=== PATIENT | female | born 1970 | race African-American/Black ===

== ENCOUNTER 2018-07-20 17:09 | Inpatient (IN) | payer BC, OTHER ==
[~2018-07-20] VITALS: Ht 182.9 cm; Wt 121.6 kg
[2018-07-20 17:16] VITALS: BP 159/101
[2018-07-20 19:50] LABS: HEMATOCRIT 34.9 % (37.0-47.0); HEMOGLOBIN 11.3 gm/dL (12.0-15.0); MCH 26.3 pg (26.0-34.0); MCHC 32.4 g/dL (28.0-37.0); MCV 81.4 fL (80.0-100.0); RBC 4.29 mil/uL (4.20-5.00); WBC 6.9 thou/uL (4.0-11.0)
[2018-07-20 19:59] LABS: ANION GAP 13 mmol/L (7-16); BUN 18 mg/dL (7-18); CALCIUM 10.6 mg/dL (8.5-10.1); CHLORIDE 99 mmol/L (98-107); CO2 24 mmol/L (21-32); CREATININE 1.2 mg/dL (0.6-1.0); GLUCOSE 105 mg/dL (74-106); SODIUM 136 mmol/L (136-145)
[2018-07-20 20:02] LABS: TROPONIN-I <0.06 ng/mL (<0.06)
[2018-07-20] MEDS ORDERED: LISINOPRIL-HCT1 EAC1 PO (20:31)
[2018-07-20] MEDS ORDERED: LISINOPRIL-HCT1 EACH PO (20:32)
[2018-07-20] MEDS ORDERED: ZANAFLEX4 MG PO (20:32)
[2018-07-20] MEDS ORDERED: MEDROXYPROGESTER5 MG PO (20:32)
[2018-07-20] MEDS ORDERED: RANITIDINE 150150 M1 PO (20:33)
[2018-07-20 20:36] LABS: AMP/METHAMP Negative (Negative); BARBITURATES Negative (Negative); BENZODIAZEPINES Negative (Negative); COCAINE Negative (Negative); METHADONE Negative (Negative); OPIATES Negative (Negative); PCP Negative (Negative)
[2018-07-20 21:57] VITALS: BP 138/62
[2018-07-20 22:53] VITALS: BP 122/70
[2018-07-20] MEDS ORDERED: APAP650 (23:31)
[2018-07-20] MEDS ORDERED: IBUPROFEN 600600 M1 PO (23:32)
[2018-07-20] MEDS ORDERED: ASPIR 8181 MG PO (23:35)
[2018-07-20 23:37] VITALS: BP 124/82
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
--- NOTE | 2018-07-21 03:28 | NUR ---
VSS-BP WNL. ASSESSMENT CHARTED. PT DENIES CP, SOA, DIZZINESS, N/V. DAUGHTER AT BEDSIDE. V PACED BBB AVB. PLAN FOR SECOND PART OF STRESS TEST TODAY. WILL CONTINUE TO MONITOR AND WITH POC.
[2018-07-21 04:20] VITALS: BP 129/79
[2018-07-21 06:34] LABS: CHOLESTEROL 243 mg/dL (<200); HDL CHOLESTEROL 45 mg/dL (>40); LDL CHOLESTEROL 167 mg/dL (<100); TC:HDL 5.4 Ratio (Not establshd); TRIGLYCERIDE 156 mg/dL (<150); VLDL 31 mg/dL (<40)
[2018-07-21 06:35] LABS: SERUM ASSESSMENT Moderate Lipemia
[2018-07-21 07:17] VITALS: BP 112/70
--- NOTE | 2018-07-21 07:56 | EKG ---
[place] [address] [facility] [place] [address] ELECTROCARDIOGRAM REPORT Name: ROBIN KITCHEN Room #: 207-P [facility] M.R.#: [id number] ������������������ Admission: 07/20/18 ������������������ Attend Phys: Sergey Rose Discharge: ������������������ Date of : 70 Report #: [id number] ����������������������������������������������������������������� [id number] THIS REPORT FOR: //name// [facility] ED Test Date: 2018-07-20 Test Time: 17:16:07 Pat Name: ROBIN KITCHEN Department: Room: 207 Gender: F [employer] Aide: FRANKLIN : 1970 Requested By: Arnoldo Potts Order Number: [id number] MD: Alan Martini Measurements Intervals Garrett Rate: 106 P: 32 NV: 163 QRS: -26 QRSD: 79 T: 23 QT: 330 QTc: 439 Interpretive Statements Sinus tachycardia Poor R wave progression No previous ECG available for comparison Electronically Signed On 07-21-2018 7:55:54 CDT by Alan Martini [email or web address] ��������������������������������������������� <ELECTRONICALLY SIGNED> ���������������������������������������� By: Alan Martini MD, [facility] ��������������������������������������������� 07/21/18 [id number] 1716 Alan Martini MD, FACC /EPI
--- NOTE | 2018-07-21 17:21 | NUR ---
ASSUMED CARE AT SHIFT CHANGE, ALERT AND ORIENTED X4. SR ON THE MONITOR AND VSS. C/O CHEST PRESSURE MEDICATED INDICATED. 1ST PART OF STRESS DONE AND 2ND PART WILL BE DONE IN THE AM. AND WILL CONTINUE WITH POC.
[2018-07-21 20:24] VITALS: BP 131/77
[2018-07-22 05:05] VITALS: BP 111/71
--- NOTE | 2018-07-22 05:13 | NUR ---
ASSESSMENT DOCUMENTED.PT RESTING IN NO ACUTE DISTRESS.A/OX4.VSS.C/O CHEST PRESSURE,REFUSES TO TAKE NITRO.TYLENOL GIVEN FOR SCIATIC NERVE W/RELIEF.POC IS TO HAVE PART 2 OF THE STRESS TEST TODAY AND PROBABLY DISCHARGE TO HOME IF RESULTS ARE NEGATIVE.
[2018-07-22 07:05] VITALS: BP 138/82
[2018-07-22 12:16] VITALS: BP 137/82
[2018-07-22] MEDS ORDERED: PROTONIX40 M1 PO (13:21)
[2018-07-22 14:21] VITALS: BP 137/82
--- NOTE | 2018-07-22 18:47 | NUR ---
ASSUMED CARE OF PATIENT AT 0700. ASSESSMENTS CHARTED. PATIENT UNDERWENT PART 2 OF STRESS TEST TODAY. PATIENT DENIES ANY CHEST PAIN OR PRESSURE. D/C APPROVED BY CARDIOLOGY AND HOSPITALIST. D/C PAPERWORK SIGNED. PATIENT STATES THAT SHE HAS ALL OF HER BELONGINGS. PATIENT WAS TAKEN WHEELCHAIR TO THE ER ENTRANCE, WHERE SHE DROVE HERSELF HOME. SHE WILL CALL AND SET UP A F/U APPT WITH A NEW PCP.
== END 2018-07-22 15:11 | disposition home or self-care (01) | DRG 392 ==
LOC: ER 17:09 → EROBS 21:46 → 2N 21:46 → ENTRNSPT 07-22 14:26 → EDTRNSPTSTS 07-22 14:29 → 2N 07-22 15:11
PROVIDERS: Emergency Medicine; Nurse Practitioner Acute Care; ADMIT Hospitalist
DX: K21.9 Gastro-esophageal reflux disease without esophagitis (principal); I10 Essential (primary) hypertension; E11.9 Type 2 diabetes mellitus without complications; J45.909 Unspecified asthma, uncomplicated; F41.9 Anxiety disorder, unspecified; E78.5 Hyperlipidemia, unspecified; E66.9 Obesity, unspecified; Z68.36 Body mass index [BMI] 36.0-36.9, adult; Z87.01 Personal history of pneumonia (recurrent); Z79.82 Long term (current) use of aspirin; Z79.899 Other long term (current) drug therapy; Z88.8 Allergy status to other drugs, medicaments and biological substances; Z91.040 Latex allergy status
CPT/HCPCS: 10081